=== PATIENT | female | born 1990 | race Hispanic/Latino ===

== ENCOUNTER 2022-04-01 08:37 | Observation (INO) | payer MEDICAID ==
[~2022-04-01] VITALS: Ht 162.6 cm; Wt 102.9 kg
[2022-04-01 08:39] VITALS: BP 122/86
[2022-04-01 09:47] LABS: APPEARANCE,URINE Cloudy (CLEAR); BILIRUBIN,URINE Negative (NEGATIVE); COLOR,URINE Dark Yellow (YELLOW); GLUCOSE, URINE (UA) Negative (NEGATIVE); KETONES,URINE Trace mg/dL (NEGATIVE); LEUKOCYTE ESTERASE ,URINE Small (NEGATIVE); NITRATE,URINE Negative (NEGATIVE); OCCULT BLOOD,URINE Negative (NEGATIVE); PH,URINE 5.5 (5.0-8.0); PROTEIN,URINE Trace mg/dL (NEGATIVE)
[2022-04-01 09:56] LABS: AMPHET/METH SCREEN,URINE NEGATIVE (NEGATIVE); BARBITURATE SCREEN, URINE NEGATIVE (NEGATIVE); BENZODIAZEPINES SCREEN,URINE NEGATIVE (NEGATIVE); CANNABINOID SCREEN,URINE NEGATIVE (NEGATIVE); COCAINE SCREEN,URINE NEGATIVE (NEGATIVE); OPIATE SCREEN,URINE NEGATIVE (NEGATIVE); PHENCYCLIDINE SCREEN,URINE NEGATIVE (NEGATIVE)
[2022-04-01] MEDS ORDERED: LACTATED RINGERS 1000ML IV SCH (10:00)
[2022-04-01] MEDS ORDERED: TERBUTALINE SULFATE VIAL 1MG/ML SQ PRN (10:00)
[2022-04-01 10:47] LABS: RBC,URINE 0-1 /HPF (0-1)
[2022-04-01 10:48] LABS: BACTERIA,URINE Few /HPF (None Seen); MUCUS,URINE Few LPF (None Seen); SQUAMOUS EPITHELIAL CELL,UR Few /HPF (0-2)
== END 2022-04-01 12:09 | disposition home or self-care (01) ==
LOC: EDH 08:37 → LDH 08:38
PROVIDERS: ADMIT Obstetrics & Gynecology; ATTEND Obstetrics & Gynecology
DX: O42.92 Full-term premature rupture of membranes, unspecified as to length of time between rupture and onset of labor (principal); Z3A.37 37 weeks gestation of pregnancy; Z79.899 Other long term (current) drug therapy
CPT/HCPCS: 96372; 59025; 96360; 80305; 81001; 76805; G0378 ×3; G0379; J7120 ×2; J3105

== ENCOUNTER 2022-04-15 07:26 | Inpatient (IN) | payer MEDICAID ==
[~2022-04-15] VITALS: Ht 162.6 cm; Wt 100.7 kg
[2022-04-15] MEDS ORDERED: LACTATED RINGERS 1000ML 1,000 ML IV SCH (08:00)
[2022-04-15 08:21] LABS: APPEARANCE,URINE CLEAR (CLEAR); BILIRUBIN,URINE NEGATIVE (NEGATIVE); COLOR,URINE YELLOW (YELLOW); GLUCOSE, URINE (UA) NEGATIVE (NEGATIVE); KETONES,URINE NEGATIVE (NEGATIVE); LEUKOCYTE ESTERASE ,URINE NEGATIVE (NEGATIVE); NITRATE,URINE NEGATIVE (NEGATIVE); OCCULT BLOOD,URINE NEGATIVE (NEGATIVE); PH,URINE 6.5 (5.0-8.0); PROTEIN,URINE NEGATIVE (NEGATIVE); UROBILINOGEN,URINE 0.2 mg/dL (0.2-1.0)
[2022-04-15 08:22] LABS: AMPHET/METH SCREEN,URINE NEGATIVE (NEGATIVE); BARBITURATE SCREEN, URINE NEGATIVE (NEGATIVE); BENZODIAZEPINES SCREEN,URINE NEGATIVE (NEGATIVE); CANNABINOID SCREEN,URINE NEGATIVE (NEGATIVE); COCAINE SCREEN,URINE NEGATIVE (NEGATIVE); PHENCYCLIDINE SCREEN,URINE NEGATIVE (NEGATIVE)
[2022-04-15] MEDS ORDERED: AMPICILLIN 1GM+NS 50ML 50 ML IV SCH (10:00)
[2022-04-15] MEDS ORDERED: LACTATED RINGERS 1000ML 1,000 ML IV PRN (10:00)
[2022-04-15] MEDS ORDERED: LACTATED RINGERS 500 ML 500 ML IV PRN (10:00)
[2022-04-15] MEDS ORDERED: ROPIVACAINE 0.2% 100ML VIAL 100 ML EP SCH (10:00)
[2022-04-15] MEDS ORDERED: EPHEDRINE SULFATE 50 MG/ML AMPULE IVP PRN (10:00)
[2022-04-15] MEDS ORDERED: NALOXONE HCL 0.4 MG/1 ML ML IV PRN (10:00)
[2022-04-15] MEDS ORDERED: MEPERIDINE-PF 50 MG/ML SYG IVP PRN (10:00)
[2022-04-15] MEDS ORDERED: PROMETHAZINE HCL 25 MG/ML 1ML AMPULE IM PRN (10:00)
[2022-04-15] MEDS ORDERED: AMPICILLIN 2GM+NS 100ML 100 ML IV SCH (10:00)
[2022-04-15 10:06] LABS: HEMATOCRIT 33.9 % (36-48); MEAN CORPUSCULAR HEMOGLOBIN 26.2 pg (27.0-33.0); MEAN CORPUSCULAR HGB CONC 31.9 g/dL (32.0-36.0); MEAN CORPUSCULAR VOLUME 82.1 fL (79-99); RED BLOOD CELL COUNT(AUTO) 4.13 MIL/uL (4.00-5.50); RED CELL DISTRIBUTION WIDTH 14.9 % (11.0-15.5); WHITE BLOOD COUNT (AUTO) 11.2 K/uL (4.8-10.8)
[2022-04-15] MEDS: OXYTOCIN-LR 20 UNITS/1000 ML 1,000 ML IV SCH ×2 (14:13→14:43)
[2022-04-15] MEDS ORDERED: WITCH HAZEL 1 PAD TP PRN (14:30)
[2022-04-15] MEDS ORDERED: LANOLIN 30GM OINTMENT TP PRN (14:30)
[2022-04-15] MEDS ORDERED: IBUPROFEN 600 MG TABLET PO PRN (14:30)
[2022-04-15] MEDS ORDERED: BENZOCAINE/LANOLIN/ALOE VERA 60 ML AEROSOL TP PRN (14:30)
[2022-04-15] MEDS ORDERED: ACETAMINOPHEN WITH CODEINE 1 TAB TAB PO PRN (14:30)
[2022-04-15] MEDS ORDERED: DIPH,PERTUSS(ACELL),TET VAC/PF 0.5 ML VIAL IM PRN (14:30)
[2022-04-15] MEDS ORDERED: MEASLES/MUMPS/RUBELLA VACCINE, LIVE 0.5 ML/VIAL SQ PRN (14:30)
[2022-04-15] MEDS ORDERED: OXYTOCIN-LR 20 UNITS/1000 ML 1,000 ML IV SCH (14:30)
[2022-04-15] MEDS ORDERED: ACETAMINOPHEN 325 MG TAB PO PRN (14:30)
[2022-04-15 15:50] LABS: RAPID PLASMA REAGIN WEAK REACTV (NONREACTIVE)
[2022-04-15 16:10] VITALS: BP 127/77
[2022-04-15 16:10] LABS: RAPID PLASMA REAGIN TITER REACTIVE 1:4 (NONREACTIVE)
[2022-04-15 20:05] VITALS: BP 116/69
[2022-04-15] MEDS: DOCUSATE SODIUM 100 MG CAP PO SCH (21:00)
[2022-04-15] MEDS ORDERED: PNV1TAB.4 PO (22:17)
[2022-04-16 00:29] VITALS: BP 117/70
[2022-04-16 04:35] VITALS: BP 130/89
[2022-04-16 06:18] LABS: HEMATOCRIT 26.4 % (36-48); MEAN CORPUSCULAR HEMOGLOBIN 25.8 pg (27.0-33.0); MEAN CORPUSCULAR HGB CONC 31.4 g/dL (32.0-36.0); RED BLOOD CELL COUNT(AUTO) 3.22 MIL/uL (4.00-5.50); RED CELL DISTRIBUTION WIDTH 14.8 % (11.0-15.5)
[2022-04-16 07:17] LABS: HEPATITIS Bs ANTIGEN SCREEN P Negative (Negative)
[2022-04-16 07:40] VITALS: BP 128/75
[2022-04-16] MEDS: DOCUSATE SODIUM 100 MG CAP PO SCH (09:00)
[2022-04-16] MEDS ORDERED: IBUP-2070 PO (14:16)
[2022-04-16 16:00] VITALS: BP 106/84
[2022-04-17 21:08] LABS: OPIATES SCREEN URINE Negative ng/mL (Cutoff=300)
== END 2022-04-16 18:15 | disposition home or self-care (01) | DRG 560 ==
LOC: EDH 07:26 → LDH 07:27 → OBSVTOIN 07:27 → LDH 11:25 → WSH 16:10
PROVIDERS: ADMIT Obstetrics & Gynecology; ATTEND Obstetrics & Gynecology
PROC: 10E0XZZ Delivery of Products of Conception, External Approach (ICD-10-PCS; principal; 2022-04-15)
DX: O75.89 Other specified complications of labor and delivery (principal); Z37.0 Single live birth; Z3A.39 39 weeks gestation of pregnancy
CPT/HCPCS: 36415; 76805; 80305; 81003; 82947; 85027; 86592; 86701; 86780; 86850; 86900; 86901; 87340; 87390; A4314; G0378; J0290; J2175; J2550; J2590; J2795; J7120

== ENCOUNTER 2024-12-27 10:03 | Emergency (ER) | payer MEDICAID ==
[~2024-12-27] VITALS: Ht 162.6 cm; Wt 108.9 kg
[~2024-12-27 10:03] MED LIST: IBUP-2070 PO; PNV1TAB.4 PO
--- NOTE | 2024-12-27 10:22 | NUR ---
PT DOES NOT WANT TO BE TESTED FOR COVID FLU OR STREP.
[2024-12-27 10:48] LABS: BASOPHILS # (AUTO) 0.03 K/uL (0.00-0.20); BASOPHILS % (AUTO) 0.4 % (0.0-5.0); EOSINOPHILS # (AUTO) 0.29 K/uL (0.00-0.70); EOSINOPHILS % (AUTO) 4.2 % (0.0-8.0); HEMATOCRIT 38.1 % (36-48); IMMATURE GRANULOCYTE ABSOLUTE 0.01 K/uL (0-1); LYMPHOCYTES # (AUTO) 2.6 K/uL (1.0-4.8); LYMPHOCYTES % (AUTO) 37.4 % (21.0-51.0); MEAN CORPUSCULAR HEMOGLOBIN 29.2 pg (27.0-33.0); MEAN CORPUSCULAR VOLUME 91.1 fL (79-99); MONOCYTES # (AUTO) 0.7 K/uL (0.1-1.0); MONOCYTES % (AUTO) 10.4 % (3.0-13.0); NEUTROPHILS # (AUTO) 3.3 K/uL (1.8-7.7); NEUTROPHILS % (AUTO) 47.5 % (40.0-77.0); PLATELET COUNT (AUTO) 284 K/uL (130-400); RED BLOOD CELL COUNT(AUTO) 4.18 MIL/uL (4.00-5.50); RED CELL DISTRIBUTION WIDTH 12.6 % (11.0-15.5); WHITE BLOOD COUNT (AUTO) 6.9 K/uL (4.8-10.8)
[2024-12-27 10:51] LABS: APPEARANCE,URINE CLOUDY (CLEAR); BILIRUBIN,URINE NEGATIVE (NEGATIVE); COLOR,URINE YELLOW (YELLOW); GLUCOSE, URINE (UA) NEGATIVE (NEGATIVE); KETONES,URINE NEGATIVE (NEGATIVE); LEUKOCYTE ESTERASE ,URINE 25 Leu/uL (NEGATIVE); NITRATE,URINE NEGATIVE (NEGATIVE); OCCULT BLOOD,URINE SMALL (NEGATIVE); PROTEIN,URINE NEGATIVE (NEGATIVE); UROBILINOGEN,URINE 0.2 mg/dL (0.2-1.0)
--- NOTE | 2024-12-27 10:51 | ERN ---
General Chief Complaint: Chest Wall Pain Stated Complaint: CHEST WALL PAIN Time Seen by MD: 10:05 Time Seen by Midlevel: 10:05 Source: patient History of Present Illness Initial Comments 34 y/o female who presents to the emergency department due to chest pain that occurred yesterday. States the pain lasted 8 seconds and resolved. Patient reports she has been sick for the past week with cough, congestion and is currently taking antibiotics from [place]. Tello SOB, current chest pain, abdominal pain or further associated symptoms. Denies any significant past medical history. Allergies: Coded Allergies: No Known Drug Allergies (Unverified Allergy, Unknown, 04/01/22) Home Meds Reported Medications Ibuprofen (Ibuprofen) 600 Mg Tablet, 600 MG PO Q8H PRN for PAIN, TAB 07/20/23 Pnv 112/Iron/FA/Om-3S/Dha/Epa (Vitafol Gummies) 1 Each Tab.chew, 1 EACH PO AM, TAB.CHEW 04/15/22 Past Medical History Past Medical History: No Pertinent History Past Surgical History: None Female( History) LMP: Dec 14, 2024 : 3 Para: 2 Aborts: 0 ROS Dictation Constitutional: Negative for fever,chills, and weight loss Eyes: Negative for injury, pain,redness, and discharge ENT: Positive for congestion Negative for injury,pain or swelling Cardiovascular: Positive for chest pain. Negative for palpitations, and edema Respiratory: Positive for cough Negative for shortness of breath, and wheezing, Abdomen/GI: Negative for abdominal pain, nausea, vomiting, diarrhea, and constipation Back: Negative for injury and pain : Negative for painful urination, bleeding or discharge MS/Extremity: Negative for injury and deformity Skin: Negative for rash, and discoloration Neuro: Negative for headache, weakness, numbness, tingling, and seizure Psych: Negative for suicide ideation, homicidal ideation, and hallucinations Physical Exam Physical Exam Dictation General: awake, alert, no acute distress Head/Face: Normocephalic, atraumatic Eyes: PERRL, EOMI, normal conjunctiva ENT: oral cavity clear, oral mucosa moist Neck: Supple, normal range of motion Cardiovascular: RRR, normal S1/S2 Respiratory: CTAB, no respiratory distress, no rales or wheezes Skin: Warm, dry, normal turgor, no rash MS/Extremity: Pulses equal, no cyanosis, neurovascular intact, FROM Neuro: COAx4, GCS 15, strength 5/5, CN 2-12 intact, normal cerebellar exam, normal gait Psych: Normal behavior, mood, and affect normal Results Laboratory and Microbiology Lab and Micro Result Laboratory Tests Test 12/27/24 10:41 White Blood Count 6.9 K/uL (4.8-10.8) Red Blood Count 4.18 MIL/uL (4.00-5.50) Hemoglobin 12.2 g/dL (12.0-16.0) Hematocrit 38.1 % (36-48) Mean Corpuscular Volume 91.1 fL (79-99) Mean Corpuscular Hemoglobin 29.2 pg (27.0-33.0) Mean Corpuscular Hemoglobin Concent 32.0 g/dL (32.0-36.0) Red Cell Distribution Width 12.6 % (11.0-15.5) Platelet Count 284 K/uL (130-400) Mean Platelet Volume 10.0 fL (7.5-10.5) Immature Granulocyte % (Auto) 0.1 % (0-1) Neutrophils (%) (Auto) 47.5 % (40.0-77.0) Lymphocytes (%) (Auto) 37.4 % (21.0-51.0) Monocytes (%) (Auto) 10.4 % (3.0-13.0) Eosinophils (%) (Auto) 4.2 % (0.0-8.0) Basophils (%) (Auto) 0.4 % (0.0-5.0) Neutrophils # (Auto) 3.3 K/uL (1.8-7.7) Lymphocytes # (Auto) 2.6 K/uL (1.0-4.8) Monocytes # (Auto) 0.7 K/uL (0.1-1.0) Eosinophils # (Auto) 0.29 K/uL (0.00-0.70) Basophils # (Auto) 0.03 K/uL (0.00-0.20) Absolute Immature Granulocyte (auto 0.01 K/uL (0-1) Nucleated Red Blood Cells 0.0 % (0.0-0.19) Urine Color YELLOW (YELLOW) Urine Appearance CLOUDY (CLEAR) H Urine pH 6.0 (5.0-8.0) Urine Specific [place] 1.023 (1.001-1.031) Urine Protein NEGATIVE mg/dL (NEGATIVE) Urine Glucose (UA) NEGATIVE mg/dL (NEGATIVE) Urine Ketones NEGATIVE mg/dL (NEGATIVE) Urine Occult Blood SMALL (NEGATIVE) H Urine Nitrate NEGATIVE (NEGATIVE) Urine Bilirubin NEGATIVE mg/dL (NEGATIVE) Urine Urobilinogen 0.2 mg/dL (0.2-1.0) Urine Leukocyte Esterase 25 [place]/uL (NEGATIVE) H Urine RBC 2-5 /HPF (0-1) H Urine WBC 2-5 /HPF (0-1) H Urine Squamous Epithelial Cells MOD /HPF (0-2) Urine Bacteria None /HPF (None Seen) Urine HCG, Qualitative NEGATIVE (NEGATIVE) Sodium Level 138 mmol/L (136-145) Potassium Level 3.8 mmol/L (3.5-5.1) Chloride Level 102 mmol/L (101-111) Carbon Dioxide Level 29 mmol/L (21-32) Blood Urea Nitrogen 10 mg/dL (7-18) Creatinine 0.6 mg/dL (0.5-1.0) Glomerular Filtration Rate Calc 122 mL/min (>90) Random Glucose 89 mg/dL (70-105) Total Calcium 8.4 mg/dL (8.5-10.1) L Troponin I High Sensitivity 25 ng/L (4-50) Labs Reviewed?: Yes EKG/XRAY/US/CT/MRI EKG Comment Date: 12/27/2024 Time: 10:28 Rate: 71 EKG interpretation: Sinus rhythm, no STEMI, normal EKG Reviewed by ED Attending MDM MDM: Differential diagnosis: Viral illness, muscular chest pain, Rationale: 34 y/o female who presents to the emergency department due to chest pain that occurred yesterday. States the pain lasted 8 seconds and resolved. Patient reports she has been sick for the past week with cough, congestion and is currently taking antibiotics from [place]. Tello SOB, current chest pain, abdominal pain or further associated symptoms. Denies any significant past medical history. Patient refused COVID, influenza, strep testing. Per physical examination patient is in no acute distress, nonlabored breathing, no tenderness to chest on palpation. Patient denies any current chest pain or s ymptoms. Labs obtained are within normal limits, normal EKG. Heart score of 0. UA shows leukocytosis and WBCs but moderate amount of squamous cells and no bacteria, the patient denies any urinary tract symptoms. Patient was educated on findings and diagnosis. Advised to follow up with PCP. Return to the emergency department if any worsening symptoms. Patient verbalized under standing. Patient is stable for discharge. There are no social concerns with this patient. I independently interpreted the test that were performed, results were reviewed by me and considered findings on radiology if ordered. Medical management and examination interpretation discussions were had by me with other qualified healthcare professionals as indicated for the patient's care. ED Course Orders Procedure Category Date Status Time Cbc With Differential LAB 12/27/24 Complete 10:21 Basic Metabolic Panel LAB 12/27/24 Complete 10:21 Troponin I High LAB 12/27/24 Complete Sensitivity 10:21 12 Lead Ekg Tracing- EKG 12/27/24 Complete Technical 10:21 Urinalysis LAB 12/27/24 Complete W/Microscopic 10:21 ,Urine Test LAB 12/27/24 Complete 10:21 Vital Signs Date Time Temp Pulse Resp B/P (MAP) Pulse Ox O2 Delivery O2 Flow Rate FiO2 12/27/24 10:04 97.0 74 16 122/85 100 Room Air 0 DX & DISP Disposition: Discharge Departure Impression: Primary Impression: Chest pain, non-cardiac Additional Impressions: Viral illness, Musculoskeletal chest pain Condition: Stable Additional Instructions: Discharge home. Rest. Follow up with primary care in 24 hours. Return to the ER for any acute changes or worsening symptoms. If any medications were prescribed take as directed. Okay to continue home medications unless otherwise discussed during your visit in the emergency room today. Patient was also advised to follow-up with primary care physician in 1 to 2 days for continued monitoring. Referrals: LOUIE PEACOCK MD (PCP) I performed the substantive portion of the visit. I have reviewed and personally made and approve the management plan that is documented in the notes by myself or the ADARSH. I acknowledge full responsibility for the patient's management plan. KELLY CASTELLON Dec 27, 2024 10:51
[2024-12-27 10:59] LABS: CREATININE 0.6 mg/dL (0.5-1.0); POTASSIUM 3.8 mmol/L (3.5-5.1)
[2024-12-27 11:12] LABS: MUCUS,URINE RARE LPF (None Seen); SQUAMOUS EPITHELIAL CELL,UR MOD /HPF (0-2)
[2024-12-27 11:34] LABS: HCG,QUALITATIVE URINE NEGATIVE (NEGATIVE)
--- NOTE | 2024-12-27 11:42 | EKG ---
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
[2024-12-27 12:08] VITALS: BP 115/79; PULSE 70; RESP 16; TEMP 97.9; O2SAT 100
== END 2024-12-27 12:11 | disposition home or self-care (01) ==
LOC: EDH 10:03
DX: R07.89 Other chest pain (principal); B34.9 Viral infection, unspecified
CPT/HCPCS: 36415; 80048; 81001; 81025; 84484; 85025; 93005; 99284